=== PATIENT | female | born 1960 | race Two or more races ===

== ENCOUNTER 2016-10-05 12:30 | Emergency (ER) | payer SELFPAY ==
[~2016-10-05] VITALS: Ht 134.6 cm; Wt 86.2 kg
[2016-10-05] MEDS ORDERED: ACETAMINOPHEN 500 MG TABLET PO ONE (13:30)
[2016-10-05] MEDS ORDERED: MECLIZINE HCL 12.5 MG TABLET. PO ONE (13:30)
--- NOTE | 2016-10-05 14:45 | RAD ---
CT of the head without contrast, 10/05/2016: History: Dizziness, nausea The ventricles are within normal limits in size. There is no shift of the midline structures. There is no evidence of acute intracranial hemorrhage or mass effect. IMPRESSION: No acute intracranial abnormality is detected. PQRS Compliance Statement: One or more of the following individualized dose reduction techniques were utilized for this examination: 1. Automated exposure control 2. Adjustment of the mA and/or kV according to patient size 3. Use of iterative reconstruction technique
[2016-10-05] MEDS ORDERED: MECL25TA3 PO (14:58)
--- NOTE | 2016-10-05 14:58 | PHYS DOC ---
Past Medical History Past Medical History: Diabetes-Type II, High Cholesterol, Hypertension Past Surgical History: Other Additional Past Surgical Histo: HERNIA X2 Alcohol Use: None Drug Use: None Adult General Chief Complaint Chief Complaint: HEADACHE HPI HPI Patient is a 56 year old Angolan-speaking female who presents with bilingual son for 5 days of intermittent dizziness and intermittent frontal headaches. States headaches are gradual in onset and mild. States dizziness happens with head movements or position changes, is acute in onset, and fatigues quickly when holding still. She had a gap in management of her chronic hypertension and is concerned this may be the cause. She is currently taking all medications as prescribed. She has mild nausea associated with her dizziness. She denies vision changes, numbness, tingling, weakness, neck pain or manipulation, chest pain, palpitations, dyspnea, diaphoresis, cough, abdominal pain, emesis, fever or chills. Review of Systems Review of Systems Constitutional: Denies fever or chills [] Eyes: Denies change in visual acuity, redness, or eye pain [] HENT: Denies nasal congestion or sore throat [] Respiratory: Denies cough or shortness of breath [] Cardiovascular: No additional information not addressed in HPI [] GI: Denies abdominal pain, vomiting, bloody stools or diarrhea [] : Denies dysuria or hematuria [] Musculoskeletal: Denies back pain or joint pain [] Integument: Denies rash or skin lesions [] Neurologic: Denies focal weakness or sensory changes [] Endocrine: Denies polyuria or polydipsia [] Current Medications Current Medications Current Medications Medications (Trade) Dose Ordered Sig/[facility] Start Time Stop Time Status Last Admin Dose Admin Acetaminophen (Tylenol) 500 mg 1X ONCE 10/05/16 13:30 10/05/16 13:31 DC 10/05/16 13:45 500 MG Meclizine HCl (Antivert) 25 mg 1X ONCE 10/05/16 13:30 10/05/16 13:31 DC 10/05/16 13:45 25 MG Allergies Allergies Allergies Coded Allergies Type Severity Reaction Last Updated Verified No Known Drug Allergies 10/05/16 No Physical Exam Physical Exam Constitutional: Well developed, well nourished, no acute distress, non-toxic appearance. [] HENT: Normocephalic, atraumatic, bilateral TMs normal, oropharynx moist, no oral exudates, nose normal. [] Eyes: PERRLA, EOMI, conjunctiva normal, no discharge. [] Neck: Normal range of motion, no tenderness, supple, no stridor. [] Cardiovascular:Heart rate regular rhythm [] Lungs & Thorax: Bilateral breath sounds clear to auscultation [] Abdomen: Bowel sounds normal, soft, no tenderness. [] Skin: Warm, dry, no erythema, no rash. [] Back: Normal range of motion. [] Extremities: No tenderness, ROM intact, no edema. [] Neurologic: Alert and oriented X 3, normal motor function, normal sensory function, no focal deficits noted, cranial nerves II through XII intact, no nystagmus, no extremity drift, normal finger to nose. [] Psychologic: Affect normal, judgement normal, mood normal. [] Current Patient Data Vital Signs Vital Signs Date Time Temp Pulse Resp B/P Pulse Ox O2 Delivery O2 Flow Rate FiO2 10/05/16 15:25 62 20 153/61 95 Room Air 10/05/16 12:45 98.4 98.4 Lab Values Laboratory Tests Test 10/05/16 13:23 Glucose (Fingerstick) 174mg/dL (70-99) H Radiology/Procedures Radiology/Procedures Head CT without contrast IMPRESSION: No acute intracranial abnormality is detected. DICTATED and SIGNED BY: MIMI KHAN MD DATE: 10/05/16 1441 Course & Med Decision Making Course & Med Decision Making Pertinent Labs and Imaging studies reviewed. (See chart for details) Workup is unremarkable. Symptoms are improved after medications. Suspect peripheral vertigo. Return precautions given. She and son understand and agree with plan. Dragon Disclaimer Dragon Disclaimer This electronic medical record was generated, in whole or in part, using a voice recognition dictation system. Departure Departure Impression: Primary Impression: Vertigo Additional Impression: Headache Disposition: 01 HOME, SELF-CARE Condition: STABLE Referrals: UNKNOWN PCP NAME (PCP) Patient Instructions: Vertigo, Atfr-ur-Mooy Additional Instructions: Take meclizine as needed for dizziness. Follow-up with your primary care doctor within one week. Return for any concerns. Scripts Meclizine Hcl 25 Mg Tablet1 Tab PO PRN TID PRN DIZZINESS #10 TAB Prov:John MANSFIELD MD 10/05/16 Problem Qualifiers Additional Impression: Headache Headache type: unspecified Headache chronicity pattern: episodic headache Intractability: not intractable Qualified Code: R51 - Headache John MANSFIELD MD Oct 05, 2016 14:58
[2016-10-05 15:25] VITALS: BP 153/61
== END 2016-10-05 15:27 | disposition home or self-care (01) ==
LOC: ER 12:30
DX: R42 Dizziness and giddiness (principal); R51 Headache; R11.0 Nausea; E11.9 Type 2 diabetes mellitus without complications; E78.00 Pure hypercholesterolemia, unspecified; I10 Essential (primary) hypertension
CPT/HCPCS: 70450; 82947; 99284; J8597

== ENCOUNTER 2019-03-14 09:44 | Emergency (ER) | payer SELFPAY ==
[~2019-03-14] VITALS: Ht 152.4 cm; Wt 86.2 kg
[~2019-03-14 09:44] MED LIST: MECL25TA3 PO
--- NOTE | 2019-03-14 10:22 | PHYS DOC ---
Past Medical History Past Medical History: Diabetes-Type II, High Cholesterol, Hypertension Past Surgical History: Other Additional Past Surgical Histo: HERNIA X2 Alcohol Use: None Drug Use: None Adult General Chief Complaint Chief Complaint: BLOOD SUGAR PROBLEM HPI HPI Patient is a 58 year old [female] who presents with [left leg swelling for the past 2 months. Patient reports she hasn't sure left leg swollen for the last 2 months, reports no known trauma, no known difference to her leg. States she has never experienced this before. Does report she has seen her primary care at [facility], they had done some blood work but had noted any imaging or any other tests on it. Does report they have tried to give her some medication for it one time but she does not know what it was. Patient does report she thinks that it may have an insulin was causing it, but was reassured by her primary. This was not the cause of her swelling.] Review of Systems Review of Systems Constitutional: Denies fever or chills [] Eyes: Denies change in visual acuity, redness, or eye pain [] HENT: Denies nasal congestion or sore throat [] Respiratory: Denies cough or shortness of breath [] Cardiovascular: No additional information not addressed in HPI [] GI: Denies abdominal pain, nausea, vomiting, bloody stools or diarrhea [] : Denies dysuria or hematuria [] Musculoskeletal: Denies back pain or joint pain does report swelling to left leg[] Integument: Denies rash or skin lesions [] Neurologic: Denies headache, focal weakness or sensory changes [] Endocrine: Denies polyuria or polydipsia [] All other systems were reviewed and found to be within normal limits, except as documented in this note. Allergies Allergies Allergies Coded Allergies Type Severity Reaction Last Updated Verified No Known Drug Allergies 10/05/16 No Physical Exam Physical Exam Constitutional: Well developed, well nourished, no acute distress, non-toxic appearance. [] HENT: Normocephalic, atraumatic, bilateral external ears normal, oropharynx moist, no oral exudates, nose normal. [] Eyes: PERRLA, EOMI, conjunctiva normal, no discharge. [] Neck: Normal range of motion, no tenderness, supple, no stridor. [] Cardiovascular:Heart rate regular rhythm, no murmur [] Lungs & Thorax: Bilateral breath sounds clear to auscultation [] Abdomen: Bowel sounds normal, soft, no tenderness, no masses, no pulsatile masses. [] Skin: Warm, dry, no erythema, no rash. [] Back: No tenderness, no CVA tenderness. [] Extremities: No tenderness, no cyanosis, no clubbing, ROM intact, no edema. Positive Homans sign left leg. Left leg noted swollen, moderately 2+ edema noted to ankle [] Neurologic: Alert and oriented X 3, normal motor function, normal sensory function, no focal deficits noted. [] Psychologic: Affect normal, judgement normal, mood normal. [] Current Patient Data Vital Signs Vital Signs Date Time Temp Pulse Resp B/P (MAP) Pulse Ox O2 Delivery O2 Flow Rate FiO2 03/14/19 12:24 77 18 168/73 (104) 98 Room Air 03/14/19 10:20 98.0 98.0 Lab Values Laboratory Tests Test 03/14/19 10:05 03/14/19 10:10 03/14/19 11:40 Glucose (Fingerstick) 185 mg/dL (70-99) H White Blood Count 11.2 x10^3/uL (4.0-11.0) H Red Blood Count 4.29 x10^6/uL (3.50-5.40) Hemoglobin 11.8 g/dL (12.0-15.5) L Hematocrit 36.1 % (36.0-47.0) Mean Corpuscular Volume 84 fL (79-100) Mean Corpuscular Hemoglobin 28 pg (25-35) Mean Corpuscular Hemoglobin Concent 33 g/dL (31-37) Red Cell Distribution Width 14.2 % (11.5-14.5) Platelet Count 299 x10^3/uL (140-400) Neutrophils (%) (Auto) 71 % (31-73) Lymphocytes (%) (Auto) 20 % (24-48) L Monocytes (%) (Auto) 7 % (0-9) Eosinophils (%) (Auto) 1 % (0-3) Basophils (%) (Auto) 1 % (0-3) Neutrophils # (Auto) 7.9 x10^3/uL (1.8-7.7) H Lymphocytes # (Auto) 2.2 x10^3/uL (1.0-4.8) Monocytes # (Auto) 0.8 x10^3/uL (0.0-1.1) Eosinophils # (Auto) 0.1 x10^3/uL (0.0-0.7) Basophils # (Auto) 0.1 x10^3/uL (0.0-0.2) Sodium Level 141 mmol/L (136-145) Potassium Level 3.9 mmol/L (3.5-5.1) Chloride Level 104 mmol/L (98-107) Carbon Dioxide Level 28 mmol/L (21-32) Anion Gap 9 (6-14) Blood Urea Nitrogen 20 mg/dL (7-20) Creatinine 1.0 mg/dL (0.6-1.0) Estimated GFR (Cockcroft-Gault) 57.1 BUN/Creatinine Ratio 20 (6-20) Glucose Level 161 mg/dL (70-99) H Calcium Level 9.3 mg/dL (8.5-10.1) Total Bilirubin 0.3 mg/dL (0.2-1.0) Aspartate Amino Transferase (AST) 19 U/L (15-37) Alanine Aminotransferase (ALT) 18 U/L (14-59) Alkaline Phosphatase 70 U/L (46-116) LC-Llj-I-Type Natriuretic Peptide 553 pg/mL (0-124) H Total Protein 8.2 g/dL (6.4-8.2) Albumin 3.3 g/dL (3.4-5.0) L Albumin/Globulin Ratio 0.7 (1.0-1.7) L Laboratory Tests 03/14/19 10:10 Laboratory Tests 03/14/19 11:40 EKG EKG [] Radiology/Procedures Radiology/Procedures Findings: No evidence of deep venous thrombosis. Normal response to augmentation, normal compressibility and normal phasicity is demonstrated. Visualized calf veins are patent. There is a heterogeneous collection of tissue in the medial thigh distally, measuring 4.3 cm long axis. This could represent a complex fluid collection or hematoma, or a mass. Impression: 1. No evidence of deep venous thrombosis. 2. 4.3 cm lesion in the soft tissues of the medial distal thigh. Possibilities include hematoma, complex fluid collection such as abscess, or mass. MR could further evaluate as indicated. Electronically signed by: Kaiden Arreguin MD (03/14/2019 11:35 AM) [facility] DICTATED and SIGNED BY: KAIDEN ARREGUIN MD DATE: 03/14/19 0617 IMPRESSION: Soft tissue collection medial to the distal femur, compatible with fluid. This could represent an old hematoma. Consider abscess if there are clinical signs of infection. Necrotic neoplasm considered less likely. Depending on clinical concern, this could be followed sonographically to document resolution, or with MR if more acute characterization is warranted. Electronically signed by: Kaiden Arreguin MD (03/14/2019 12:50 PM) [facility] DICTATED and SIGNED BY: KAIDEN ARREGUIN MD DATE: 03/14/19 1250 [] Course & Med Decision Making Course & Med Decision Making Pertinent Labs and Imaging studies reviewed. (See chart for details) [Discussed imaging results with patient and family, with recommendation to continue follow-up with primary care provider for further imaging and evaluation. Patient agreeable with this plan.] Dragon Disclaimer Dragon Disclaimer This electronic medical record was generated, in whole or in part, using a voice recognition dictation system. Departure Departure Impression: Primary Impression: Hematoma of left lower extremity Additional Impression: Left leg swelling Disposition: HOME, SELF-CARE Condition: GOOD Referrals: UNKNOWN PCP NAME (PCP) Patient Instructions: Edema Additional Instructions: Chandrakant hablemos, de los estudios que hicemos hoy, recommendan un MRI para identificar mas que es el globula en hernandez peierna. Dice que es mas probable un globula de eileen adalberto. Otro posibilidad es bolsa infeccion, stevo los resultados de hernandez eileen no parece asi. Otro posibilidad, aunque muy bajo, que dijeron era quiza brittney tumor necrotizante. Para evaluar todo eso recommendan el MRI Problem Qualifiers Primary Impression: Hematoma of left lower extremity Encounter type: initial encounter Qualified Codes: S80.12XA - Contusion of left lower leg, initial encounter NARENDRA STEWART APRN Mar 14, 2019 10:22
[2019-03-14 10:41] LABS: BASO # 0.1 x10^3/uL (0.0-0.2); BASO % 1 % (0-3); EOS # 0.1 x10^3/uL (0.0-0.7); EOS % 1 % (0-3); HEMATOCRIT 36.1 % (36.0-47.0); HEMOGLOBIN 11.8 g/dL (12.0-15.5); LYMPH # 2.2 x10^3/uL (1.0-4.8); LYMPH % 20 % (24-48); MEAN CORPUSCULAR HEMOGLOBIN 28 pg (25-35); MEAN CORPUSCULAR HGB CONC 33 g/dL (31-37); MEAN CORPUSCULAR VOLUME 84 fL (79-100); MONO # 0.8 x10^3/uL (0.0-1.1); MONO % 7 % (0-9); NEUT # 7.9 x10^3/uL (1.8-7.7); NEUT % 71 % (31-73); PLATELET COUNT 299 x10^3/uL (140-400); RED BLOOD COUNT 4.29 x10^6/uL (3.50-5.40); RED CELL DISTRIBUTION WIDTH 14.2 % (11.5-14.5); WHITE BLOOD COUNT 11.2 x10^3/uL (4.0-11.0)
--- NOTE | 2019-03-14 11:39 | RAD ---
Left lower extremity venous doppler ultrasound Indication: Left leg swelling. Technique: Color Doppler, grayscale, and spectral waveform analysis is used to evaluate the left femoral and popliteal veins. Findings: No evidence of deep venous thrombosis. Normal response to augmentation, normal compressibility and normal phasicity is demonstrated. Visualized calf veins are patent. There is a heterogeneous collection of tissue in the medial thigh distally, measuring 4.3 cm long axis. This could represent a complex fluid collection or hematoma, or a mass. Impression: 1. No evidence of deep venous thrombosis. 2. 4.3 cm lesion in the soft tissues of the medial distal thigh. Possibilities include hematoma, complex fluid collection such as abscess, or mass. MR could further evaluate as indicated. Electronically signed by: Kaiden Arreguin MD (03/14/2019 11:35 AM) [facility]
[2019-03-14 12:01] LABS: CALCIUM 9.3 mg/dL (8.5-10.1); GFR 57.1; POTASSIUM 3.9 mmol/L (3.5-5.1)
[2019-03-14 12:07] LABS: ALBUMIN 3.3 g/dL (3.4-5.0); ALBUMIN/GLOBULIN RATIO 0.7 (1.0-1.7); TOTAL BILIRUBIN 0.3 mg/dL (0.2-1.0); TOTAL PROTEIN 8.2 g/dL (6.4-8.2)
--- NOTE | 2019-03-14 12:52 | RAD ---
CT LOWER EXTREMITY WO LEFT Indication: Medial distal thigh swelling, soft tissue lesion on ultrasound. Exposure: One or more of the following individualized dose reduction techniques were utilized for this examination: 1. Automated exposure control 2. Adjustment of the mA and/or kV according to patient size 3. Use of iterative reconstruction technique. Technique: Standard imaging without intravenous contrast. Findings: Hypointense soft tissue mass is identified just medial to the distal femur, within the vastus intermedius or medialis muscle. Measures 3.1 cm AP by 2.3 cm wide by 5.2 cm cephalocaudal. This measures about 1 Hounsfield units, compatible with fluid content. The underlying femoral cortex is intact. No bone destruction, acute fracture or periosteal reaction. Mild subcutaneous stranding or edema about the lower leg. IMPRESSION: Soft tissue collection medial to the distal femur, compatible with fluid. This could represent an old hematoma. Consider abscess if there are clinical signs of infection. Necrotic neoplasm considered less likely. Depending on clinical concern, this could be followed sonographically to document resolution, or with MR if more acute characterization is warranted. Electronically signed by: Kaiden Arreguin MD (03/14/2019 12:50 PM) [facility]
[2019-03-14 14:37] VITALS: BP 132/72
== END 2019-03-14 14:40 | disposition home or self-care (01) ==
LOC: ER 09:44
DX: S80.12XA Contusion of left lower leg, initial encounter (principal); M79.89 Other specified soft tissue disorders; E11.9 Type 2 diabetes mellitus without complications; E78.00 Pure hypercholesterolemia, unspecified; I10 Essential (primary) hypertension; X58.XXXA Exposure to other specified factors, initial encounter; Y93.89 Activity, other specified; Y92.89 Other specified places as the place of occurrence of the external cause; Y99.8 Other external cause status
CPT/HCPCS: 36415; 73700; 80053; 82962; 83880; 85025; 93971; 99285-25

== ENCOUNTER 2019-04-04 10:20 | Emergency (ER) | payer SELFPAY ==
[~2019-04-04] VITALS: Ht 162.6 cm; Wt 90.7 kg
[2019-04-04 10:40] VITALS: BP 161/77
[2019-04-04] MEDS ORDERED: ACYC800T PO (10:45)
[2019-04-04] MEDS ORDERED: TRAM50TA PO (10:45)
--- NOTE | 2019-04-04 10:46 | PHYS DOC ---
Past Medical History Past Medical History: Diabetes-Type II, High Cholesterol, Hypertension Past Surgical History: Other Additional Past Surgical Histo: HERNIA X2 Alcohol Use: None Drug Use: None Adult General Chief Complaint Chief Complaint: INSECT BITE HPI HPI Patient is a 58 year old female with history of diabetes type 2, hypertension, high cholesterol, who presents to the ED today complaining of a rash on the right side of her forearm and hand that began a week ago. Patient denies any fever. She states the pain is radiating to the right upper extremity. Review of Systems Review of Systems Constitutional: Denies fever or chills [] Musculoskeletal: Denies back pain or joint pain [] Integument: Reports rash to the right upper extremity Neurologic: Denies headache, focal weakness or sensory changes [] All other systems were reviewed and found to be within normal limits, except as documented in this note. Allergies Allergies Allergies Coded Allergies Type Severity Reaction Last Updated Verified No Known Drug Allergies 10/05/16 No Physical Exam Physical Exam Constitutional: Well developed, well nourished, no acute distress, non-toxic appearance. [] Skin: Right pinky finger, ring finger, lateral wrist, with grouped blister type rash consistent with shingles. Back: No tenderness, no CVA tenderness. [] Extremities: No tenderness, no cyanosis, no clubbing, ROM intact, no edema. [] Neurologic: Alert and oriented X 3, normal motor function, normal sensory function, no focal deficits noted. [] Psychologic: Affect normal, judgement normal, mood normal. [] EKG EKG [] Radiology/Procedures Radiology/Procedures [] Course & Med Decision Making Course & Med Decision Making Pertinent Labs and Imaging studies reviewed. (See chart for details) This is a 58-year-old female patient who presents to the ED today with a rash consistent of shingles. Rash has been present for one week. Informed patient this illness will run its own course considering its been present for 1 week. Offered acyclovir as a supportive measure as well as Tramadol for pain. Follow- up with PCP in 1-2 weeks. Dragon Disclaimer Dragon Disclaimer This electronic medical record was generated, in whole or in part, using a voice recognition dictation system. Departure Departure Impression: Primary Impression: Shingles Disposition: HOME, SELF-CARE Condition: STABLE Referrals: UNKNOWN PCP NAME (PCP) follow up with your doctor next week Patient Instructions: Shingles, [id number] Additional Instructions: You were evaluated in the emergency room with a rash consistent of shingles. Take the prescribed medications as ordered. Take the prescribed pain medicine as needed for pain. Follow-up with your doctor in 1-2 weeks. Scripts Acyclovir (ACYCLOVIR) 800 Mg Tablet 1 TAB PO 5XDAY, #50 TAB Prov: FRANCISCA WEBER APRN 04/04/19 Tramadol Hcl (TRAMADOL HCL) 50 Mg Tablet 50 MG PO Q6HRS PRN for PAIN, #30 TAB Prov: FRANCISCA WEBER APRN 04/04/19 Problem Qualifiers Primary Impression: Shingles Herpes zoster complications: without complications Qualified Codes: B02.9 - Zoster without complications FRANCISCA WEBER APRN Apr 04, 2019 10:46
== END 2019-04-04 10:47 | disposition home or self-care (01) ==
LOC: ER 10:20
DX: B02.9 Zoster without complications (principal); E11.9 Type 2 diabetes mellitus without complications; E78.00 Pure hypercholesterolemia, unspecified; I10 Essential (primary) hypertension
CPT/HCPCS: 99283

== ENCOUNTER 2019-04-07 23:15 | Emergency (ER) | payer SELFPAY ==
[~2019-04-07] VITALS: Ht 154.9 cm; Wt 90.7 kg
[~2019-04-07 23:15] MED LIST changes: +ACYC800T PO; +TRAM50TA PO
--- NOTE | 2019-04-07 23:56 | RAD ---
PROCEDURE: CHEST AP ONLY CLINICAL INDICATION: Chest pain. COMPARISON: None FINDINGS: No pneumothorax identified. Cardiac and mediastinal contours unremarkable. No pulmonary consolidation or acute airspace disease. No acute osseous abnormalities identified. IMPRESSION: No pulmonary consolidation or acute airspace disease. Electronically signed by: Anam Ralph DO (04/07/2019 11:52 PM) [facility]
[2019-04-08] MEDS ORDERED: ONDANSETRON ODT 4 MG TAB.RAPDIS. PO ONE
--- NOTE | 2019-04-08 00:01 | PHYS DOC ---
Past Medical History Past Medical History: Diabetes-Type II, Hypertension Past Surgical History: Other Additional Past Surgical Histo: HERNIA X2 Alcohol Use: None Drug Use: None Adult General Chief Complaint Chief Complaint: FEVER HPI HPI 58-year-old female presents to the emergency department with complaints of fever, pain in her throat after taking Tylenol and acyclovir. Patient was recently seen on the of this month and diagnosed with shingles. She was given acyclovir and tramadol. She describes intermittent chest pain. Patient has had some nausea however worse with taking medications. She denies any abdominal pain, headache, visual changes. He makes her symptoms worse, nothing makes her symptoms better. Review of Systems Review of Systems Constitutional: subjective fever Respiratory: Denies cough or shortness of breath [] Cardiovascular: No additional information not addressed in HPI [] GI: Denies abdominal pain, bloody stools or diarrhea [] Musculoskeletal: Denies back pain or joint pain [] Integument: Denies rash or skin lesions [] Neurologic: Denies headache, focal weakness or sensory changes [] All other systems were reviewed and found to be within normal limits, except as documented in this note. Current Medications Current Medications Current Medications Medications (Trade) Dose Ordered Sig/Braydon Start Time Stop Time Status Last Admin Dose Admin Aspirin (Lisbeth Aspirin) 325 mg 1X ONCE 04/08/19 00:15 04/08/19 00:16 DC 04/08/19 00:31 325 MG Ondansetron HCl (Zofran Odt) 4 mg 1X ONCE 04/08/19 00:00 04/08/19 00:01 DC 04/08/19 00:31 4 MG Allergies Allergies Allergies Coded Allergies Type Severity Reaction Last Updated Verified No Known Drug Allergies 10/05/16 No Physical Exam Physical Exam Constitutional: Well developed, well nourished, no acute distress, non-toxic appearance. [] HENT: Normocephalic, atraumatic, bilateral external ears normal, oropharynx moist, no oral exudates, nose normal. [] Eyes: PERRLA, EOMI, conjunctiva normal, no discharge. [] Cardiovascular:Heart rate regular rhythm, no murmur [] Lungs & Thorax: Bilateral breath sounds clear to auscultation [] Abdomen: Bowel sounds normal, soft, no tenderness, no masses, no pulsatile masses. [] Skin: Warm, dry, no erythema, no rash. [] Extremities: No tenderness, no edema. [] Neurologic: Alert and oriented X 3, no focal deficits noted. [] Psychologic: Affect normal, judgement normal, mood normal. [] Current Patient Data Lab Values Laboratory Tests Test 04/08/19 00:45 White Blood Count 9.8 x10^3/uL (4.0-11.0) Red Blood Count 4.42 x10^6/uL (3.50-5.40) Hemoglobin 12.3 g/dL (12.0-15.5) Hematocrit 36.5 % (36.0-47.0) Mean Corpuscular Volume 83 fL (79-100) Mean Corpuscular Hemoglobin 28 pg (25-35) Mean Corpuscular Hemoglobin Concent 34 g/dL (31-37) Red Cell Distribution Width 15.1 % (11.5-14.5) H Platelet Count 272 x10^3/uL (140-400) Neutrophils (%) (Auto) 76 % (31-73) H Lymphocytes (%) (Auto) 17 % (24-48) L Monocytes (%) (Auto) 7 % (0-9) Eosinophils (%) (Auto) 1 % (0-3) Basophils (%) (Auto) 1 % (0-3) Neutrophils # (Auto) 7.4 x10^3/uL (1.8-7.7) Lymphocytes # (Auto) 1.6 x10^3/uL (1.0-4.8) Monocytes # (Auto) 0.6 x10^3/uL (0.0-1.1) Eosinophils # (Auto) 0.1 x10^3/uL (0.0-0.7) Basophils # (Auto) 0.1 x10^3/uL (0.0-0.2) Urine Collection Type Unknown Urine Color Yellow Urine Clarity Clear Urine pH 5.5 Urine Specific [place] 1.020 Urine Protein >=300 mg/dL (NEG-TRACE) Urine Glucose (UA) Negative mg/dL (NEG) Urine Ketones (Stick) Negative mg/dL (NEG) Urine Blood Negative (NEG) Urine Nitrite Negative (NEG) Urine Bilirubin Negative (NEG) Urine Urobilinogen Dipstick 0.2 mg/dL (0.2 mg/dL) Urine Leukocyte Esterase Small (NEG) Urine RBC Occ /HPF (0-2) Urine WBC 5-10 /HPF (0-4) Urine Squamous Epithelial Cells Mod /LPF Urine Amorphous Sediment Present /HPF Urine Bacteria Few /HPF (0-FEW) Urine Hyaline Casts Moderate /HPF Urine Mucus Mod /LPF Sodium Level 137 mmol/L (136-145) Potassium Level 3.6 mmol/L (3.5-5.1) Chloride Level 100 mmol/L (98-107) Carbon Dioxide Level 28 mmol/L (21-32) Anion Gap 9 (6-14) Blood Urea Nitrogen 24 mg/dL (7-20) H Creatinine 1.3 mg/dL (0.6-1.0) H Estimated GFR (Cockcroft-Gault) 42.2 BUN/Creatinine Ratio 18 (6-20) Glucose Level 150 mg/dL (70-99) H Lactic Acid Level 1.0 mmol/L (0.4-2.0) Calcium Level 9.5 mg/dL (8.5-10.1) Total Bilirubin 0.3 mg/dL (0.2-1.0) Aspartate Amino Transferase (AST) 22 U/L (15-37) Alanine Aminotransferase (ALT) 19 U/L (14-59) Alkaline Phosphatase 58 U/L (46-116) Troponin I Quantitative < 0.017 ng/mL (0.000-0.055) Total Protein 7.7 g/dL (6.4-8.2) Albumin 3.5 g/dL (3.4-5.0) Albumin/Globulin Ratio 0.8 (1.0-1.7) L Laboratory Tests 04/08/19 00:45 Laboratory Tests 04/08/19 00:45 EKG EKG EKG reviewed, normal sinus rhythm, heart rate 79, no evidence of acute ST or T wave change appreciated on EKG.[] Interpretation Time: Interpretation 232 Radiology/Procedures Radiology/Procedures [facility] [address] [place] [address] IMAGING REPORT Signed PATIENT: BOSSMAN BENAVIDES MACCOUNT: [id number] : 1960 LOCATION: ER AGE: 58 SEX: F EXAM STATUS: REG ER ORD. PHYSICIAN: LIZETH OAKES MD REASON: chest pain PROCEDURE: CHEST AP ONLY PROCEDURE: CHEST AP ONLY CLINICAL INDICATION: Chest pain. COMPARISON: None FINDINGS: No pneumothorax identified. Cardiac and mediastinal contours unremarkable. No pulmonary consolidation or acute airspace disease. No acute osseous abnormalities identified. IMPRESSION: No pulmonary consolidation or acute airspace disease. Electronically signed by: Yaya Foster DO (04/07/2019 11:52 PM) [facility] DICTATED and SIGNED BY: YAYA FOSTER DO DATE: 04/07/19 0589 [] Course & Med Decision Making Course & Med Decision Making Pertinent Labs and Imaging studies reviewed. (See chart for details) []58-year-old female presents to the emergency department with complaints of fever, pain in her throat after taking Tylenol and acyclovir. Patient was recently seen on the of this month and diagnosed with shingles. She was given acyclovir and tramadol. She describes intermittent chest pain. Patient has had some nausea however Sissy with taking medications. She denies any abdominal pain, headache, visual changes. He makes her symptoms worse, nothing makes her symptoms better. Labs reviewed, white blood cell count 9.8, creatinine 1.3, urinalysis negative for acute process, chest x-ray reveals no evidence of acute consolidation. Discussed with patient plan for discharge home. Would recommend Zofran as needed. Discussed with patient at bedside with family member present. She agrees with discharge plan and it's understanding of return precautions. Dragon Disclaimer Dragon Disclaimer This electronic medical record was generated, in whole or in part, using a voice recognition dictation system. Departure Departure Impression: Primary Impression: Shingles Additional Impression: Nausea Disposition: 01 HOME, SELF-CARE Condition: IMPROVED Referrals: UNKNOWN PCP NAME (PCP) Patient Instructions: Nausea, Adult, [id number], Shingles, [id number] Additional Instructions: Recommend follow up with PCP 3 - 5 days Return to the ER with worsening symptoms, intractable pain, fever, altered mental status Tylenol/Motrin as needed for pain Take antibioitics, if prescribed as directed Zofran prescription as written Scripts Ondansetron Hcl (ZOFRAN) 4 Mg Tablet 1 TAB PO PRN Q6-8HRS, #12 TAB Prov: LIZETH OAKES MD 04/08/19 Problem Qualifiers Primary Impression: Shingles Herpes zoster complications: without complications Qualified Codes: B02.9 - Zoster without complications LIZETH OAKES MD Apr 08, 2019 00:01
[2019-04-08] MEDS ORDERED: ASPIRIN 325 MG TABLET PO ONE (00:15)
[2019-04-08 01:06] LABS: BASO # 0.1 x10^3/uL (0.0-0.2); BASO % 1 % (0-3); EOS # 0.1 x10^3/uL (0.0-0.7); EOS % 1 % (0-3); HEMATOCRIT 36.5 % (36.0-47.0); HEMOGLOBIN 12.3 g/dL (12.0-15.5); LYMPH # 1.6 x10^3/uL (1.0-4.8); LYMPH % 17 % (24-48); MEAN CORPUSCULAR HEMOGLOBIN 28 pg (25-35); MEAN CORPUSCULAR HGB CONC 34 g/dL (31-37); MEAN CORPUSCULAR VOLUME 83 fL (79-100); MONO # 0.6 x10^3/uL (0.0-1.1); MONO % 7 % (0-9); NEUT # 7.4 x10^3/uL (1.8-7.7); NEUT % 76 % (31-73); PLATELET COUNT 272 x10^3/uL (140-400); RED BLOOD COUNT 4.42 x10^6/uL (3.50-5.40); RED CELL DISTRIBUTION WIDTH 15.1 % (11.5-14.5); WHITE BLOOD COUNT 9.8 x10^3/uL (4.0-11.0)
[2019-04-08 01:07] LABS: BILIRUBIN,URINE NEGATIVE (NEG); CLARITY,URINE CLEAR; COLOR,URINE YELLOW; NITRITE,URINE NEGATIVE (NEG); PH,URINE 5.5; PROTEIN,URINE >=300 mg/dL (NEG-TRACE); UROBILINOGEN,URINE 0.2 mg/dL (0.2 mg/dL)
[2019-04-08 01:13] LABS: SQUAMOUS EPITHELIAL CELL,UR MOD /LPF
[2019-04-08 01:14] LABS: AMORPHOUS SEDIMENT,UR PRESENT /HPF; BACTERIA,URINE FEW /HPF (0-FEW)
[2019-04-08 01:15] LABS: HYALINE CASTS, URINE MODERATE /HPF
[2019-04-08 01:17] LABS: RBC,URINE OCC /HPF (0-2)
[2019-04-08 01:18] LABS: CALCIUM 9.5 mg/dL (8.5-10.1); CREATININE 1.3 mg/dL (0.6-1.0); GFR 42.2; POTASSIUM 3.6 mmol/L (3.5-5.1)
[2019-04-08 01:23] LABS: ALBUMIN 3.5 g/dL (3.4-5.0); ALBUMIN/GLOBULIN RATIO 0.8 (1.0-1.7); TOTAL BILIRUBIN 0.3 mg/dL (0.2-1.0); TOTAL PROTEIN 7.7 g/dL (6.4-8.2)
[2019-04-08 01:38] VITALS: BP 151/73
[2019-04-08] MEDS ORDERED: ONDA4TAB7 PO (01:48)
== END 2019-04-08 02:00 | disposition home or self-care (01) ==
LOC: ER 23:15
DX: B02.9 Zoster without complications (principal); R11.0 Nausea; E11.9 Type 2 diabetes mellitus without complications; I10 Essential (primary) hypertension
CPT/HCPCS: 36415; 71045; 80053; 81001; 83605; 84484; 85025; 87086; 99285; Q0162